=== PATIENT | male | born 1990 | race Caucasian/White ===

== ENCOUNTER 2018-12-31 18:28 | Emergency (ER) | payer BC, SELFPAY ==
[2018-12-31 18:37] VITALS: BP 173/93; PULSE 63; RESP 12; TEMP 36.6; O2SAT 95
--- NOTE | 2018-12-31 18:50 | ED.GENADUL_ITS ---
Discharge Plan Disposition Patient Disposition: HOME Condition: Good Discharge Details Chief Complaint: Laceration Clinical Impression: Visit for wound check Primary Care Provider: Yolie Pack ED Provider: Den Oneal Home Meds and New Rx's Prescriptions: No Action naproxen sodium [Aleve] 220 MG tablet 440 mg PO RF: 0 Discharge Instructions Instructions: Cellulitis (ED) Additional Instructions: To the information for what a skin infection looks like. If you notice any redness, drainage, discharge or fever, chills, swelling or pain please return immediately for reassessment. If you notice any worsening of your symptoms, or any new symptoms such as vomiting, diarrhea, fever, chills, shortness of breath, chest pain, numbness, weakness, or fainting , please return immediately to the emergency department for reevaluation. Please follow up with your primary care provider as soon as possible for reassessment and reevaluation. As always, it was a pleasure participating in your medical care today. Referrals: Yolie Pack [Primary Care Provider] - Medical Decision Making This is a pleasant 28-year-old male with no past medical history who presents because he stepped on a lea nail. He want to get his tetanus updated. Physical exam demonstrates no evidence of laceration but a very small minimal puncture wound on the bottom of his left lateral foot. An 11 blade was used to cut a small amount of callus away, and the resting material was removed. The area was then scrubbed vigorously with a chlorhexidine scrub her. Patient tolerated this well. Tetanus has been updated. We discussed red flags which to return including signs of infection the patient understands. I have extensively reviewed the treatment plan and discharge instructions with the patient. I have addressed all patient concerns at this time. The patient was made aware of what symptoms to monitor for that would warrant a return to the emergency department. Discussed the plan with the patient, they demonstrate verbal understanding and agreement with our assessment and plan at this time. HPI General Date/Time Provider Initiated Documentation: 12/31/18 18:35 . HPI Narrative: This is a 28-year-old male with no significant past medical history who presents today after he stepped onto a lea screw with his left foot. He did have the pole of the tip of the screw out. He does not know when his last tetanus was and so he came in today to get his tetanus updated. The patient has no other complaints. He denies any numbness tingling weakness. He denies any redness or chills. No other complaints. This occurred roughly 1-2 hours prior to arrival. Related Data Home Medications Medication Instructions Recorded Confirmed naproxen sodium [Aleve] 440 mg PO 10/30/17 Allergies Allergy/AdvReac Type Severity Reaction Status Date / Time No Known Allergies Allergy Unverified 12/31/18 18:40 General Stated Complaint: Laceration PORSCHE: 4 Review of Systems Review of Systems All systems reviewed & are unremarkable except as noted in HPI and below PFSH Social History Smoking/Tobacco Use Status: Never Drug use: Never Do you feel safe at home: Yes Do you feel safe in your relationship?: Yes Exam Narrative Exam Narrative: 1.Const: Well-nourished, Well-developed, appearing stated age 2.Eyes: PERRL, no conjunctival injection, and symmetrical lids. 3.ENT: Atraumatic external nose and ears. Moist MM. Neck: Symmetric, trachea midline, No thyromegaly. 4.CVS: +S1/S2, No murmurs or gallops. Peripheral pulses 2+ and equal in all extremities. Brisk capillary refill in all extremities. 5.RESP: Unlabored respiratory effort. Clear to auscultation bilaterally. No wheezes rales or rhonchi 6.GI: Soft, Nontender/Nondistended, No hepatosplenomegaly. No guarding or rebound. 7.MSK: Normocephalic/Atraumatic, Extremities w/o deformity or ttp No cyanosis or clubbing, Normal movement of all extremities 8.Skin: Warm, Dry. No rashes or lesions. Left foot demonstrates a small minimal puncture wound with a small amount of crusty material around it. No redness, discharge, or signs of infection. 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 Sensation grossly intact, no focal neurologic deficits. 10.Psych: (AAO) x3. Appropriate mood and affect Course Vital Signs Temperature 36.6 C 12/31/18 18:37 Pulse 63 12/31/18 18:37 Respiratory Rate 12 12/31/18 18:37 Blood Pressure 173/93 H 12/31/18 18:37 Pulse Oximetry 95 12/31/18 18:37 Temperature 36.6 C 12/31/18 18:37 Temperature Source Temporal Artery Scan 12/31/18 18:37 Pulse 63 12/31/18 18:37 Respiratory Rate 12 12/31/18 18:37 Respiratory Effort Non-Labored 12/31/18 18:39 Blood Pressure 173/93 H 12/31/18 18:37 Blood Pressure Position Sitting 12/31/18 18:37 Pulse Oximetry 95 12/31/18 18:37 Oxygen Delivery Method Room Air 12/31/18 18:37 Oxygen Flow Rate 0 12/31/18 18:37 Pain Level 5 12/31/18 18:37
== END 2018-12-31 19:00 | disposition home or self-care (01) ==
PROVIDERS: Emergency Provider Student in an Organized Health Care Education/Training Program; PCP Nurse Practitioner
DX: S91.332A Puncture wound without foreign body, left foot, initial encounter (principal); W45.8XXA Other foreign body or object entering through skin, initial encounter
CPT/HCPCS: 90471; 99284; 99282

== ENCOUNTER 2019-11-06 13:54 | Emergency (ER) | payer BC, SELFPAY ==
[2019-11-06 13:58] VITALS: BP 143/83; PULSE 83; RESP 18; TEMP 36.5; O2SAT 98
--- NOTE | 2019-11-06 15:20 | ED.GENADUL_ITS ---
Discharge Plan Disposition Patient Disposition: HOME Discharge Details Chief Complaint: RespSymp Clinical Impression: Pneumonia Primary Care Provider: Alvina Pope ED Provider: Supa Enamorado Home Meds and New Rx's Prescriptions: New doxycycline hyclate 100 mg tablet 100 mg PO BID Qty: 13 RF: 0 Discharge Instructions Instructions: Pneumonia (ED) Additional Instructions: Please drink plenty of fluids to stay hydrated. Allow for plenty of rest. Please contact your primary care physician to arrange follow-up. Return to the ER for any worsening or new concerning symptoms. Referrals: Alvina Pope [Primary Care Provider] - Discharge Data Discharge Date/Time-TO BE ENTERED AT DEPARTURE: 11/06/19 15:39 Medical Decision Making 29-year-old male here with productive cough for the past 2 to 3 weeks, saturating well in no respiratory distress but does have rales on left lung. Chest x-ray was reviewed and interpreted by me: negative. Suspect bronchitis and early pneumonia. Plan to treat with doxycycline. Patient was encouraged to follow-up with his primary care physician and to return should have any worsening or new concerning symptoms. Patient verbalized understanding of discharge instructions and was appreciative of care. HPI General Mode of arrival: ambulatory . Date/Time Provider Initiated Documentation: 11/06/19 15:14 . Limitations to Documentation: no limitations . Information obtained by: patient . HPI Narrative: 29-year-old male otherwise healthy presents with cough. Patient notes cough for the past 2 to 3 weeks. Cough is productive yellow sputum. Positive sick contacts including all his family members had recent respiratory illness that they have cleared. He has had fever early in course of illness. Related Data Home Medications Medication Instructions Recorded Confirmed doxycycline hyclate 100 mg PO BID #13 tab 11/06/19 Previous Rx's Medication Instructions Recorded doxycycline hyclate 100 mg PO BID #13 tab 11/06/19 Allergies Allergy/AdvReac Type Severity Reaction Status Date / Time No Known Allergies Allergy Unverified 12/31/18 18:40 General Stated Complaint: RespSymp PORSCHE: 4 Review of Systems All systems reviewed & are unremarkable except as noted in HPI and below Constitutional Constitutional: Reports as per HPI Respiratory Respiratory: Reports cough PFSH Social History Smoking/Tobacco Use Status: Never Drug use: Never Substance use type: does not use Do you feel safe at home: Yes Do you feel safe in your relationship?: Yes Exam Const General: cooperative and no acute distress HENMT Mouth: moist mucous membranes Eyes Conjunctivae: normal conjunctivae Neck Neck: trachea midline and supple Resp Auscultation: clear to auscultation bilaterally, rales on the left, no rhonchi and no wheezes Cardio Jugular venous pressure: no JVD Rate: regular rate and not tachycardic Rhythm: regular rhythm Heart Sounds: no murmurs GI Palpation: soft, not firm, no guarding, no masses, not rigid and nontender Skin General skin exam: no rashes or lesions noted Neuro General: alert, awake and tone normal Extrem General: no edema Psych Appearance: grossly normal Mental Status: mental status grossly normal Course Vital Signs Vital signs: Vital Signs Temperature 36.5 C 11/06/19 13:58 Pulse 83 11/06/19 13:58 Respiratory Rate 18 11/06/19 13:58 Blood Pressure 143/83 H 11/06/19 13:58 Pulse Oximetry 98 11/06/19 13:58 Temperature 36.5 C 11/06/19 13:58 Temperature Source Skin 11/06/19 13:58 Pulse 83 11/06/19 13:58 Respiratory Rate 18 11/06/19 13:58 Respiratory Effort 11/06/19 15:02 Blood Pressure 143/83 H 11/06/19 13:58 Pulse Oximetry 98 11/06/19 13:58 Oxygen Delivery Method Room Air 11/06/19 13:58 Oxygen Flow Rate 0 11/06/19 13:58
[2019-11-06] MEDS: Doxycycline Hyclate 100 MG CAP PO (15:35)
--- NOTE | 2019-11-06 15:37 | DI.RAD_ITS ---
EXAM: XR CHEST 2V PA LATERAL CLINICAL HISTORY: cough. TECHNIQUE: 2D digital imaging was performed. COMPARISON: No exams were available for comparison FINDINGS: LUNGS: Clear. No pleural abnormality seen. HEART: Normal. MEDIASTINUM: Normal. OTHER FINDINGS:Normal. BONE:Normal. IMPRESSION: No acute pulmonary findings.
== END 2019-11-06 15:39 | disposition home or self-care (01) ==
PROVIDERS: Emergency Provider Student in an Organized Health Care Education/Training Program; PCP Family Medicine
DX: J18.9 Pneumonia, unspecified organism (principal)
CPT/HCPCS: 99283; 71046

== ENCOUNTER 2020-10-01 19:12 | Emergency (ER) | payer BC, SELFPAY ==
[2020-10-01 19:15] VITALS: BP 160/81; PULSE 77; RESP 20; TEMP 36.5; O2SAT 98
--- NOTE | 2020-10-01 19:21 | W.ED.GENAD ---
Discharge Plan Disposition Patient Disposition: HOME Condition: Good Discharge Details Clinical Impression: Scrotal swelling, Open wound Primary Care Provider: Alvina Pope ED Provider: Yolanda Alvarez Home Meds and New Rx's Prescriptions: Continued sertraline [Zoloft] 25 mg tablet 25 mg PO DAILY RF: 0 Discharge Instructions Instructions: Scrotal Pain (ED), Vasectomy (DC) Additional Instructions: Please rest as much as possible. Please elevate your scrotum as discussed. Please continue to ice. You may use 1000 mg of Tylenol 4 times a day and/or 600 mg of ibuprofen 4 times a day. Please keep dressing over the wound to keep this from rubbing. I would like to contact Dr. Estrada tomorrow to discuss your postoperative pain further. If you develop fever/chills, increased pain, redness, drainage or other new/worsening symptoms please seek care urgently once again. Referrals: Abrahan Estrada MD [ [facility] STAFF PHYSICIAN] - Discharge Data Discharge Date/Time-TO BE ENTERED AT DEPARTURE: 10/01/20 20:44 Medical Decision Making Patient is a pleasant 30 year old male presenting today with c/c of left sided scrotal pain. He had a vasectomy 6 days ago. Since then, he has had pain in the left side of the scrotum that has continued to increase with time. He denies any trauma since. No fevers/chills. No difficulty with urinating or pain with urination. States that he has some mild tenderness that radiates into his abdomen bialteraly. 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 He noted, 2 days after his surgery, that there was an opening at the area of his incision. This has been rubbing against his left thigh. He has tried to cover this but had difficulty wiht bandage staying. On exam, patient has ecchymosis and swelling to the left scrotum. No erythema or warmth. His history is not consistent with torsion. I do not see evidence of infection. HIs inicison is open 1cm x 5mm. No drainage from this. The medial left thigh appears chaffed. I was unable to reach Dr. Estrada. He and I discussed care. I advised he slow down his activities. Encouraged elevation of his scrotum. I do not see evidence of infection, do not feel that antibiotics are warranted at this time. Offfered pain medications but patient would like to continue with tylenol and/or Ibuprofen. Dosing was discussed. Return precautions were given. Nursing staff applied dressing to prevent further chaffing. All of his questions and concerns were addressed, he is in agreement with this plan. HPI General Mode of arrival: ambulatory. Date/Time Provider Initiated Documentation: 10/01/20 19:21. Limitations to Documentation: no limitations. Information obtained by: patient, RN notes reviewed and old records reviewed. History of Present Illness 30 year old M presents to the emergency department with the chief complaint of left scrotal pain, described as moderate, with intensity rated at 7. Quality is described as aching, and is localized to the genitals. Patient reports no radiation. Patient started experiencing this day(s) (6) and it has been constant. Immobilization improves symptom(s), Movement worsens symptoms . Patient notes no other symptoms.; denies fever/chills. Patient did receive the following treatments prior to arrival, NSAID and other (tylenol) Related Data Home Medications Medication Instructions Recorded Confirmed sertraline 25 mg tablet 25 mg PO DAILY 08/13/20 09/25/20 Allergies Allergy/AdvReac Type Severity Reaction Status Date / Time No Known Allergies Allergy Unverified 08/13/20 15:01 General Stated Complaint: Male Reproductive Problem PORSCHE: 4 Review of Systems Constitutional Constitutional: Reports as per HPI, Denies chills, Denies fatigue, Denies fever(s) and Denies headache(s) ENT Ears, Nose, Mouth, and Throat: Denies headache(s) Cardiovascular Cardiovascular: Reports as per HPI, Denies chest pain and Denies dyspnea Respiratory Respiratory: Reports as per HPI, Denies cough and Denies dyspnea Gastrointestinal Gastrointestinal: Reports as per HPI Genitourinary Genitourinary: Denies system reviewed and no additional complaints, except as documented (patient denies any change in urinary habits) Musculoskeletal Musculoskeletal: Reports as per HPI and Denies back pain Integumentary/Breasts Skin/Breast: Reports as per HPI and Denies rash Neurologic Neurologic: Reports as per HPI and Denies headache(s) Endocrine Endocrine: Denies fatigue PFS Social History Smoking/Tobacco Use Status: Never Smoking risk assessment performed?: Yes Drug use: Never Substance use type: does not use Do you feel safe at home: Yes Do you feel safe in your relationship?: Yes Exam Const General: cooperative, healthy appearing, uncomfortable, no acute distress and well developed Nutritional Appearance: well nourished and overweight Orientation: alert and awake [facility] Head: normal to inspection Mouth: moist mucous membranes Resp Effort & Inspection: normal respiratory effort, able to speak in complete sentences and no respiratory distress Auscultation: clear to auscultation bilaterally, no rales, no rhonchi and no wheezes Cardio Rate: regular rate Rhythm: regular rhythm Heart Sounds: S1 normal and S2 normal GI Inspection: normal to inspection Palpation: soft, no hepatosplenomegaly, not rigid and nontender Percussion: normal to percussion Auscultation: normal bowel sounds Penis: normal penis Meatus: meatus normal Scrotum: ecchymosis on the left, not erythematous, no inguinal hernias, no masses and scrotal swelling on the left Testes: normal Back/Spine/Pelvis Back: no CVA tenderness Skin General skin exam: ecchymosis Wounds: wounds noted (incision has opened left testicle) Neuro General: patient alert and patient awake Cognition: normal cognition Speech: speech normal Gait: normal gait Psych Appearance: grossly normal and well kempt Mental Status: mental status grossly normal Speech and Movement: speech and movement normal Course Vital Signs Vital signs: Vital Signs Temperature 36.5 C 10/01/20 19:15 Pulse 77 10/01/20 19:15 Respiratory Rate 20 10/01/20 19:15 Blood Pressure 160/81 H 10/01/20 19:15 Pulse Oximetry 98 10/01/20 19:15 Temperature 36.5 C 10/01/20 19:15 Temperature Source Temporal Artery Scan 10/01/20 19:15 Pulse 77 10/01/20 19:15 Respiratory Rate 20 10/01/20 19:15 Respiratory Effort Non-Labored 10/01/20 19:19 Blood Pressure 160/81 H 10/01/20 19:15 Pulse Oximetry 98 10/01/20 19:15 Oxygen Delivery Method Room Air 10/01/20 19:15 Oxygen Flow Rate 0 10/01/20 19:15 Pain Level 7 10/01/20 19:15
[2020-10-01 20:39] VITALS: BP 160/81; PULSE 77; RESP 20; TEMP 36.5; O2SAT 98
== END 2020-10-01 20:44 | disposition home or self-care (01) ==
PROVIDERS: Emergency Provider Physician Assistant; PCP Family Medicine
DX: T81.32XA Disruption of internal operation (surgical) wound, not elsewhere classified, initial encounter (principal); N50.82 Scrotal pain; G89.18 Other acute postprocedural pain; Z98.52 Vasectomy status
CPT/HCPCS: 99282; 99283

== ENCOUNTER 2020-10-29 14:40 | Emergency (ER) | payer BC, SELFPAY ==
[2020-10-29 14:43] VITALS: BP 151/90; PULSE 73; RESP 20; TEMP 36.5; O2SAT 98
--- NOTE | 2020-10-29 15:00 | RT.EKG_ITS ---
APPROVED REPORT Exam: Resting ECG Patient Location: E HR:72 bpm ECG Measurements Heart Rate 72 AXIS AK 172 P -25 QRSd 83 QRS 60 QT 370 T 19 QTc 406 Conclusion Sinus rhythm...normal P axis, V-rate 60- 99 Physician: Q wave and inverted t wave in lead 3, no stemi
[2020-10-29] MEDS: Ketorolac 60 MG/2 ML VIAL IM (15:25)
--- NOTE | 2020-10-29 15:35 | ED.GENADUL_ITS ---
Discharge Plan Disposition Patient Disposition: HOME Condition: Stable Discharge Details Clinical Impression: Radicular pain in right arm Primary Care Provider: Alvina Pope ED Provider: Zeke Edwards Home Meds and New Rx's Prescriptions: Continued sertraline [Zoloft] 25 mg tablet 25 mg PO DAILY RF: 0 ibuprofen [IBU-200] 200 mg Tablet 600 mg PO Q6H PRNRF: 0 Discharge Instructions Instructions: Cervical Radiculopathy (ED) Additional Instructions: Rash, elevate, cool and/or warm compresses every 2 hours for 20 minutes. [id number] anti-inflammatory medication yesterday. Please watch for new or worsening symptoms and return to the ER for any concerns. Gentle stretching as tolerated. Please follow-up with your primary care provider tomorrow as already scheduled. Watch for new or worsening symptoms and return to the ER for any concerns. As we discussed, if your symptoms are not improving with conservative care and referral for potential MRI and/or nerve conduction study test may be indicated. Discharge Data Discharge Date/Time-TO BE ENTERED AT DEPARTURE: 10/29/20 16:05 Medical Decision Making 30-year-old male, no significant past medical history, presenting for pain that travels down from his shoulder into his right arm but not below his elbow. Associated with paresthesias throughout his entire right arm. Denies any numbne ss or weakness. Similar presentation to his left arm approximately 7-10 days ago, resolved after 24 hours on its own. Denies any obvious trauma however did lift 100 pound propane tank. He denies any midline neck discomfort, recent fevers, history of IV drug use, abdominal pain, chest pain, shortness of breath, cough. Clinically he appears well, nontoxic. Neuro, vascular, tendon intact. Patient has full range of motion of the right shoulder but his discomfort does increase with movement. He has discomfort over the anterior aspect of his right shoulder as well as his right trapezius. Clinically this certainly appears to be musculoskeletal in nature. Given the lack of trauma, no midline point tenderness, no history of IV drug use, I do not believe that emergent imaging is likely indicated. We discussed more conservative therapy of cool and/or warm compresses, consistent anti-inflammatory use, and careful observation. We will obtain a screening EKG at this time however ACS is extremely low on the differential. Patient has proper follow-up tomorrow with his primary care provider. We discussed that if symptoms were to persist that referral to neurology or orthopedics could be indicated for assessment, advanced imaging, nerve conduction studies, etc. Patient is comfortable with this plan and has no additional questions or concerns. He was given 60 IM Toradol. EKG obtained, please see official report by Dr. Oneal. Sinus rhythm, normal P axis, ventricular rate of 72. No STEMI. Q waves and inverted T waves in leads III. Medical Records Medical records reviewed: Yes I reviewed the patient's medical records. HPI General Mode of arrival: ambulatory . Date/Time Provider Initiated Documentation: 10/29/20 14:40 . Limitations to Documentation: no limitations . Information obtained by: patient . 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 He states roughly 7-10 days ago he developed tingling and shooting pain in his left arm, it lasted no more than 1 day and it resolved completely. Yesterday he lifted a 100 pound propane cylinder, denies any obvious injury. Later that evening he developed shooting discomfort intermittently down the right arm associated with tingling. He reports that the pain is mild but worse with movement. The pain is primarily in his right trapezius and anterior shoulder. He denies any fever, neck pain, chest pain, shortness of breath, radiation elsewhere of his discomfort, weakness or numbness. He took a single dose of Motrin yesterday for his discomfort. He is actually scheduled to be seen by his primary care provider tomorrow but came to the ER today to be evaluated in a more timely fashion. Prior to the symptoms 7-10 days ago, he has never had anything like this before. He denies any back pain or pain in his legs. He denies smoking. He reports rather infrequent alcohol use, no drug use. He tells me that his father had a heart attack in his 50s and he just wants to be sure that this is not his heart. Related Data Home Medications Medication Instructions Recorded Confirmed sertraline 25 mg tablet 25 mg PO DAILY 08/13/20 10/29/20 ibuprofen [IBU-200] 600 mg PO Q6H PRN 10/29/20 10/29/20 Allergies Allergy/AdvReac Type Severity Reaction Status Date / Time No Known Allergies Allergy Unverified 10/29/20 14:48 General Stated Complaint: Orthopedic PORSCHE: 3 Review of Systems Constitutional Constitutional: Denies fever(s), Denies headache(s) and Denies weakness ENT Ears, Nose, Mouth, and Throat: Denies headache(s) and Reports neck pain Cardiovascular Cardiovascular: Denies chest pain and Denies dyspnea Respiratory Respiratory: Denies cough and Denies dyspnea Gastrointestinal Gastrointestinal: Denies abdominal pain, Denies nausea and Denies vomiting Musculoskeletal Musculoskeletal: Denies back pain, Denies arthralgias, Reports neck pain, Denies numbness and Reports tingling Integumentary/Breasts Skin/Breast: Denies erythema Neurologic Neurologic: Denies headache(s), Denies numbness, Reports tingling and Denies weakness [facility] Social History Smoking/Tobacco Use Status: Never Smoking risk assessment performed?: Yes Alcohol Intake: current Alcohol Intake frequency: holidays/special occasions only Drug use: Never Substance use type: does not use Current gender identity: male Do you feel safe at home: Yes Do you feel safe in your relationship?: Yes Exam Const General: cooperative, healthy appearing, comfortable and no acute distress Orientation: alert and awake HENMT Head: normal to inspection, normocephalic and atraumatic Mouth: moist mucous membranes Eyes General: appearance normal, both eyes and all related structures Conjunctivae: conjunctivae normal Sclera: sclerae normal Neck Neck: normal visual inspection, full ROM, no lymphadenopathy, no meningeal signs, trachea midline, supple and tender (Right trapezius, no midline point tenderness) Chest Chest: normal palpation of entire chest wall Resp Effort & Inspection: normal respiratory effort and able to speak in complete sentences Auscultation: clear to auscultation bilaterally Cardio Rate: regular rate Rhythm: regular rhythm GI Palpation: soft and nontender Back/Spine/Pelvis Back: no CVA tenderness and No back tenderness Skin General skin exam: no rashes or lesions noted Neuro General: patient alert, patient awake, moves all extremities and no focal motor deficits Cognition: normal cognition Speech: speech normal Gait: normal gait Motor: muscle tone normal throughout, strength 5/5 throughout, no movement abnormalities noted and no fasciculations Sensory Exam: no sensory deficits noted Extrem General: normal to inspection, full ROM and capillary refill normal Right upper extremity: normal to inspection, full ROM, normal capillary refill, shoulder/upper arm Details: normal to inspection, tenderness, axillary nerve sensory function normal and normal ROM; no swelling, no ecchymosis and no crepi tus, elbow/forearm Details: normal to inspection, normal ROM and distal pulses intact; no tenderness and no swelling, wrist Details: normal to inspection, normal ROM, normal vascular exam and radial pulse present; no tenderness and no swelling and hand Details: normal to inspection, normal capillary refill, neuromotor exam normal, neurosensory exam normal, tendon exam normal, vascular exam Details: radial pulse present and normal capillary refill and normal ROM of fingers; no tenderness; no cyanosis, no edema and joint enlargement noted Left upper extremity: normal to inspection, full ROM, normal capillary refill and shoulder/upper arm Details: inspection abnormal, axillary nerve sensory function normal and normal ROM; no tenderness; no cyanosis, no edema and joint enlargement noted Shoulder/upper arm images: 1. Mild tenderness to moderate palpation. Skin is intact. No erythema, warmth, ecchymosis. Neuro, vascular, tendon intact 2. Mild tenderness to moderate palpation. Skin is intact. No erythema, warmth, ecchymosis. Neuro, vascular, tendon intact. Psych Appearance: grossly normal Mental Status: mental status grossly normal Course Vital Signs Vital signs: Vital Signs Temperature 36.5 C 10/29/20 14:43 Pulse 73 10/29/20 14:43 Respiratory Rate 20 10/29/20 14:43 Blood Pressure 151/90 H 10/29/20 14:43 Pulse Oximetry 98 10/29/20 14:43 Temperature 36.5 C 10/29/20 14:43 Temperature Source Temporal Artery Scan 10/29/20 14:43 Pulse 73 10/29/20 14:43 Respiratory Rate 20 10/29/20 14:43 Respiratory Effort Non-Labored 10/29/20 14:47 Blood Pressure 151/90 H 10/29/20 14:43 Blood Pressure Position Sitting 10/29/20 14:43 Pulse Oximetry 98 10/29/20 14:43 Oxygen Delivery Method Room Air 10/29/20 14:43 Oxygen Flow Rate 0 10/29/20 14:43 Pain Level 6 10/29/20 15:25
[2020-10-29 15:53] VITALS: BP 135/79; PULSE 69; RESP 21; TEMP 36.6; O2SAT 97
== END 2020-10-29 16:05 | disposition home or self-care (01) ==
PROVIDERS: Emergency Provider Physician Assistant; PCP Family Medicine
DX: M79.601 Pain in right arm (principal); R20.2 Paresthesia of skin; M25.511 Pain in right shoulder; M54.10 Radiculopathy, site unspecified
CPT/HCPCS: 93005; 96372; 99284; 93010; J1885

== ENCOUNTER 2021-08-19 14:45 | Emergency (ER) | payer BC, SELFPAY ==
[2021-08-19] VITALS (13 sets, daily range): BP systolic 131–135; BP diastolic 73–76; PULSE 83–88; RESP 20; TEMP 36.4–36.8; O2SAT 95–98
--- NOTE | 2021-08-19 15:06 | W.ED.GENAD ---
Discharge Plan Disposition Patient Disposition: HOME Condition: Stable Discharge Details Clinical Impression: COVID-19 Primary Care Provider: Alvina Pope ED Provider: Sarai Garcia Home Meds and New Rx's Prescriptions: New albuterol sulfate 90 mcg/actuation aerosol powdr breath activated 2 inh IH Q6H PRN (Reason: shortness of breath or wheezing) Qty: 1 RF: 0 prednisone 20 mg tablet 40 mg PO DAILY 2 Days Qty: 4 RF: 0 benzonatate 100 mg capsule 100 mg PO TID PRN (Reason: cough) Qty: 10 RF: 0 amoxicillin-pot clavulanate [Augmentin] 875-125 mg tablet 1 tab PO BID 7 Days Qty: 14 RF: 0 Discharge Instructions Instructions: COVID-19 (Coronavirus Disease 2019) (ED) Additional Instructions: Your Covid test today is positive. Prescriptions for an inhaler, steroids and cough medication have been sent electronically to your pharmacy. Use the inhaler as needed and directed for cough or shortness of breath. Take the cough medication as needed and directed. Start the steroid prescription tomorrow and take once daily for the next 2 days. You have also been sent home with 2 doses of Robitussin with codeine to take every 6 hours as needed and directed for coughing. A prescription for antibiotics has also been sent electronically to your pharmacy. You do not need to start the antibiotics unless the cough worsens with yellow or green sputum production. Report to the [facility] building [address] at 10 AM tomorrow morning for your monoclonal antibody infusion for treatment of your COVID-19 virus. This infusion can help prevent hospitalization, disability and from COVID-19. Follow-up with your primary care doctor in 1 week. Call your children's watch train assembler for recommendations as they are considered close contacts to COVID-19. Return to the emergency department with any worsening or new concerning symptoms such as persistent vomiting or diarrhea or shortness of breath. You can use the pulse oximeter that you were sent home with to monitor your oxygen levels. If your oxygen level is persistently below 90% and you feel short of breath, return immediately to the emergency department. Discharge Data Discharge Physician: Sarai Garcia Medical Decision Making 31-year-old male presents with cough, nausea, fatigue and diarrhea for the past 2 days. Vitals within normal limits. Oxygen saturation 97 to 98% on room air. He has coughing noted in the room but it does not appear productive and there is no wheezing on exam. No rhonchi or crackles. Normal ENT exam. Suspect most likely URI with cough. Also consider developing bronchitis. A rapid Covid swab obtained. Will give a breathing treatment, dose of steroids, Tessalon Perles and reassess. Covid swab positive. Patient reassessed and he denies any relief with albuterol neb. He was given a dose of Toradol and Robitussin with codeine and had significant improvement in his cough and chest pain with coughing. A chest x-ray noted a questionable left basilar opacity which may represent an infiltrate. Patient's oxygen saturation remained within normal limits. Discussed with Brenda Olmos and patient can be seen tomorrow in the [facility] [address] for a monoclonal antibody infusion at 10 AM. Patient is agreeable with this plan. Prescription for steroids to help with pain and coughing, cough medication and albuterol inhaler sent electronically to his pharmacy. As there is a questionable infiltrate, a new antibiotic prescription was sent electronically to take if his symptoms do not improve or worsen or he has sputum production. He was also given a pulse oximeter to go. Advised to follow up with the primary care doctor for re-evaluation. Usual and customary return precautions given prior to discharge. Medical Records Medical records reviewed: Yes I reviewed the patient's medical records. Imaging Data Radiologic Study: Radiologist's impression: XR Chest Exam date and time: 08/19/2021 4:33 PM Age: 31 years old Clinical indication: Cough and shortness of breath TECHNIQUE: Imaging protocol: XR of the chest. Views: 1 view. COMPARISON: CR XR CHEST 2V PA LATERAL 11/06/2019 3:30 PM FINDINGS: Lungs: Hypoventilatory study. Questionable nodular opacity in the right upper lung zone. Faint left basilar opacity. Pleural spaces: Unremarkable. No pleural effusion. No pneumothorax. Heart/Mediastinum: Unremarkable. No cardiomegaly. Bones/joints: Unremarkable. IMPRESSION: Faint left basilar opacity may represent an infiltrate. Ill-defined right upper lung zone opacity as well. Recommend follow-up PA and lateral. Lab Data Lab results reviewed: Yes I reviewed the patient's lab results. Labs: Laboratory Tests Range/Units 08/19/21 15:00 COVID-19 Source Nasal/Nares SARS-CoV-2 (PCR) (Negative) POSITIVE A* HPI General Mode of arrival: ambulatory. Date/Time Provider Initiated Documentation: 08/19/21 14:59. Limitations to Documentation: no limitations. Information obtained by: patient. HPI Narrative: Patient is a 31-year-old male who presents with cough, fatigue and diarrhea for the past few days. 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 Last test yesterday. He states he first started with sinus symptoms a few weeks ago with sinus pressure, congestion and green nasal discharge. He states his sinus symptoms are now resolved and he has occasional clear nasal discharge. He states he received his Covid booster 2 days ago and since that night has had dry cough and a few episodes of watery brown diarrhea. He states he has had decreased appetite but denies any loss of sense of smell or taste. He admits to occasional burning in his chest and shortness of breath that occurs only with coughing. He denies any fever, vomiting. He states he took DayQuil today without relief. Related Data Home Medications Medication Instructions Recorded Confirmed albuterol sulfate 2 inh IH Q6H PRN #1 each 08/19/21 amoxicillin-pot clavulanate 1 tab PO BID 7 Days #14 tab 08/19/21 [Augmentin] benzonatate 100 mg PO TID PRN #10 cap 08/19/21 prednisone 40 mg PO DAILY 2 Days #4 tab 08/19/21 Previous Rx's Medication Instructions Recorded albuterol sulfate 2 inh IH Q6H PRN #1 each 08/19/21 amoxicillin-pot clavulanate 1 tab PO BID 7 Days #14 tab 08/19/21 [Augmentin] benzonatate 100 mg PO TID PRN #10 cap 08/19/21 prednisone 40 mg PO DAILY 2 Days #4 tab 08/19/21 Allergies Allergy/AdvReac Type Severity Reaction Status Date / Time No Known Allergies Allergy Unverified 08/19/21 14:57 General Stated Complaint: RespSymp PORSCHE: 2 Review of Systems All systems reviewed & are unremarkable except as noted in HPI and below Constitutional Constitutional: Reports as per HPI, Denies chills and Denies fever(s) Eyes Eyes: Denies blurry vision ENT Ears, Nose, Mouth, and Throat: Denies dizziness, Denies sore throat and Denies throat swelling Cardiovascular Cardiovascular: Reports chest pain (burning, only with coughing) and Reports dyspnea (only with some coughing episodes) Respiratory Respiratory: Reports cough and Reports dyspnea (only with some coughing episodes) Gastrointestinal Gastrointestinal: Denies abdominal pain, Denies diarrhea and Denies vomiting Genitourinary Genitourinary: Denies hematuria and Denies dysuria Musculoskeletal Musculoskeletal: Denies back pain and Denies numbness Integumentary/Breasts Skin/Breast: Denies lesions and Denies rash Neurologic Neurologic: Denies dizziness, Denies localized weakness and Denies numbness Allergic/Immunologic Allergic/Immunologic: Denies throat swelling PFS Active Problem List (Updated 08/19/21 @ 16:49 by Sarai Garcia DO) COVID-19 (Acute) Bilateral carpal tunnel syndrome (Acute) Pneumonia (Acute) Medical History (Updated 08/19/21 @ 16:49 by Sarai Garcia DO) Anxiety with depression Paresthesia of both hands Preventative health care Scheuermanns disease Subcutaneous mass Tinea pedis VSD (ventricular septal defect) Social History Smoking/Tobacco Use Status: Former Tobacco Use Smoking risk assessment performed?: Yes Alcohol Intake: current Alcohol Intake frequency: holidays/special occasions only Drug use: Never Substance use type: does not use Current gender identity: male Do you feel safe at home: Yes Do you feel safe in your relationship?: Yes Exam Const General: cooperative and no acute distress HENMT Head: normal to inspection Ears: hearing grossly normal bilaterally, external ears normal and TM's normal bilaterally General nose exam: external nose normal Face and sinus: normal facial exam and no sinus tenderness Mouth: oral mucosae normal Throat: posterior oropharynx normal Eyes General: appearance normal, both eyes and all related structures EOM: EOM intact bilaterally Neck Neck: normal visual inspection and No submandibular swelling Lymphatic: no lymphadenopathy noted Chest Chest: normal inspection of the chest and no tenderness Resp Effort & Inspection: normal respiratory effort and able to speak in complete sentences Auscultation: clear to auscultation bilaterally Cardio Rate: regular rate Rhythm: regular rhythm Skin General skin exam: no rashes or lesions noted Neuro General: patient alert, patient awake and patient oriented x3 Cognition: normal cognition Speech: speech normal Motor: muscle tone normal throughout Sensory Exam: no sensory deficits noted Extrem General: normal to inspection, full ROM, capillary refill normal, no calf tenderness bilaterally and no edema Psych Appearance: grossly normal Mental Status: mental status grossly normal Speech and Movement: speech and movement normal Affect: normal affect Course Vital Signs Vital signs: Vital Signs Temperature 97.5 F L 08/19/21 14:52 Pulse 88 08/19/21 14:52 Respiratory Rate 20 08/19/21 14:52 Blood Pressure 131/73 08/19/21 14:52 Pulse Oximetry 98 08/19/21 14:52 Temperature 97.5 F L 08/19/21 14:52 Temperature Source Skin 08/19/21 14:52 Pulse 88 08/19/21 14:52 Respiratory Rate 20 08/19/21 14:52 Respiratory Effort 08/19/21 15:02 Blood Pressure 131/73 08/19/21 14:52 Blood Pressure Position Sitting 08/19/21 14:52 Pulse Oximetry 98 08/19/21 14:52 Oxygen Delivery Method Room Air 08/19/21 14:52 Oxygen Flow Rate 0 08/19/21 14:52 Pain Level 7 08/19/21 14:52
[2021-08-19 15:30] LABS: Source Nasal/Nares
[2021-08-19] MEDS: predniSONE 20 MG TAB 60 MG PO (15:31)
[2021-08-19] MEDS: Albuterol/Ipratropium 3 ML UPD VIAL UPD (15:31)
[2021-08-19] MEDS: Benzonatate 100 MG CAP PO (15:31)
--- NOTE | 2021-08-19 16:30 | DI.RAD_ITS ---
Exam(s) XR PORTABLE CHEST AP EXAM: XR PORTABLE CHEST AP CLINICAL HISTORY: cough, sob, r/o acute disease. TECHNIQUE: 2D digital imaging was performed. COMPARISON: CR XR CHEST 2V PA LATERAL from 11/06/2019 FINDINGS: Heart size is upper normal. The mediastinum is not widened. There infiltrates in both lower lobes. No pleural effusions. IMPRESSION: Suboptimal inspiratory effort. However, suspicion for bilateral lower lobe infiltrates. Recommend n onportable PA and lateral views when clinically possible. DATA REPOSITORY: RADIATION DOSE DELIVERED: All CT scans at this facility use at least one of these dose optimization techniques: automated exposure control; mA and/or kV adjustment per patient size (includes targeted e xams where dose is matched to clinical indication); or iterative reconstruction.
[2021-08-19 16:34] LABS: COVID-19 PCR POSITIVE (Negative)
[2021-08-19] MEDS: Ketorolac 60 MG/2 ML VIAL IM (16:50)
[2021-08-19] MEDS: guaiFENesin/CODEINE PHOSPHATE 10 ML CUP PO (16:50)
--- NOTE | 2021-08-19 17:06 | DI.VRAD_ITS ---
PROCEDURE INFORMATION: Exam: XR Chest Exam date and time: 08/19/2021 4:33 PM Age: 31 years old Clinical indication: Cough and shortness of breath TECHNIQUE: Imaging protocol: XR of the chest. Views: 1 view. COMPARISON: CR XR CHEST 2V PA LATERAL 11/06/2019 3:30 PM FINDINGS: Lungs: Hypoventilatory study. Questionable nodular opacity in the right upper lung zone. Faint left basilar opacity. Pleural spaces: Unremarkable. No pleural effusion. No pneumothorax. Heart/Mediastinum: Unremarkable. No cardiomegaly. Bones/joints: Unremarkable. IMPRESSION: Faint left basilar opacity may represent an infiltrate. Ill-defined right upper lung zone opacity as well. Recommend follow-up PA and lateral. Dictated and Authenticated by: Franck Escudero MD. Ordering:RODRIGO Moon MD
[2021-08-19] MEDS: guaiFENesin/CODEINE PHOSPHATE 10 ML CUP 20 ML PO (17:35)
== END 2021-08-19 17:48 | disposition home or self-care (01) ==
PROVIDERS: Emergency Provider Physician Assistant; PCP Family Medicine
DX: U07.1 COVID-19 (principal); R06.02 Shortness of breath; R05.9 Cough, unspecified
CPT/HCPCS: 87635; 94640; 96372; 99284; 71045; J1885; J7512; J7620

== ENCOUNTER 2021-08-20 01:49 | Outpatient (CLI) | payer BC, SELFPAY ==
[2021-08-20] MEDS: Normal Saline 500 ML 30 ML IV (13:00)
[2021-08-20 13:15] VITALS: BP 121/96; PULSE 68; RESP 16; TEMP 35.8; O2SAT 96
[2021-08-20 13:20] VITALS: BP 123/74; PULSE 62; RESP 16; TEMP 36.6; O2SAT 99
[2021-08-20 13:40] VITALS: BP 128/72; PULSE 65; RESP 16; TEMP 36.8; O2SAT 97
[2021-08-20 14:10] VITALS: BP 123/72; PULSE 64; RESP 16; TEMP 36.6; O2SAT 95
[2021-08-20 14:40] VITALS: BP 119/70; PULSE 61; RESP 16; TEMP 36.4; O2SAT 94
== END 2021-08-20 01:50 | disposition home or self-care (01) ==
LOC: INF 01:50
PROVIDERS: PCP Family Medicine; Visit Provider Family Medicine
DX: U07.1 COVID-19 (principal)
CPT/HCPCS: 96365

== ENCOUNTER 2023-10-03 18:05 | Emergency (ER) | payer BC, SELFPAY ==
[2023-10-03 18:08] VITALS: BP 171/97; PULSE 79; RESP 18; TEMP 35.9; O2SAT 96
--- NOTE | 2023-10-03 18:17 | ED.GENADUL_ITS ---
Discharge Plan Disposition Patient Disposition: Home Condition: Good Discharge Details Clinical Impression: Laceration of finger Primary Care Provider: Alvina Pope ED Provider: Reina Eagle Home Meds and New Rx's Prescriptions: No Action albuterol sulfate 90 mcg/actuation aerosol powdr breath activated 2 inh IH Q6H PRN (Reason: shortness of breath or wheezing) Qty: 1 0RF benzonatate 100 mg capsule 100 mg PO TID PRN (Reason: cough) Qty: 10 0RF Discharge Instructions Instructions: Finger Laceration (ED) Additional Instructions: Keep wound clean, dry and covered. You can shower, but do not keep hand submerged in water, like dishes or a bathtub. Pat dry. Stitches will dissolve on their own and do not need to be removed. Return if you develop worsening swelling, redness, drainage or increasing pain. These would be concerning signs for infection. Medical Decision Making Emergent evaluation of finger laceration. Laceration very superficial, doubt bony involvement, doubt ligamentous injury. No evidence of foreign body. Tetanus is within 10 years. Laceration repaired without complication. No indication for antibiotic prophylaxis. Return precautions advised. Wound care instructions provided. Medical Records Medical records reviewed: Yes I reviewed the patient's medical records. HPI General Date/Time Provider Initiated Documentation: 10/03/23 18:17 . Limitations to Documentation: no limitations . Information obtained by: patient . HPI Narrative: 33-year-old gentleman without significant past medical history presents for evaluation of left finger laceration. Occurred just prior to arrival. He was trying to open something with a knife and cut his left finger. Denies any numbness, tingling, difficulty moving his finger tetanus within 10 years. Related Data Home Medications Medication Instructions Recorded Confirmed albuterol sulfate 90 mcg/actuation 2 inh inhalation Q6H PRN shortness 08/19/21 breath activated powder inhaler of breath or wheezing #1 ea benzonatate 100 mg capsule 100 mg PO TID PRN cough #10 caps 08/19/21 Previous Rx's Medication Instructions Recorded albuterol sulfate 90 mcg/actuation 2 inh inhalation Q6H PRN shortness 08/19/21 breath activated powder inhaler of breath or wheezing #1 ea benzonatate 100 mg capsule 100 mg PO TID PRN cough #10 caps 08/19/21 Allergies Allergy/AdvReac Type Severity Reaction Status Date / Time No Known Allergies Allergy Unverified 08/19/21 14:57 General Stated Complaint: Laceration PORSCHE: 4 PFSH All Active Problems (Updated 10/03/23 @ 18:35 by Reina Eagle MD) Laceration of finger (Acute) COVID-19 (Acute) Bilateral carpal tunnel syndrome (Acute) Pneumonia (Acute) Medical History Preventative health care VSD (ventricular septal defect) Scheuermanns disease Subcutaneous mass Tinea pedis Anxiety with depression Paresthesia of both hands Social History Smoking/Tobacco Use Status: Former Tobacco Use Smoking risk assessment performed?: Yes Alcohol Intake: current Alcohol Intake frequency: holidays/special occasions only Drug use: Never Substance use type: does not use Current gender identity: male Do you feel safe at home: Yes Do you feel safe in your relationship?: Yes Exam Narrative Exam Narrative: Review of Systems: All systems reviewed & are unremarkable except as noted in HPI and below Well-developed, no acute distress NACT PERRL, normal conjunctiva RRR Unlabored respiratory effort Nondistended abdomen Left index finger with superficial laceration on the radial aspect at the PIP. Flap is very superficial, neurovascularly intact, good cap refill, normal range of motion in all distributions No rashes or lesions. no focal neurologic deficits Appropriate mood and affect Course Vital Signs Vital signs: Vital Signs Temperature 35.9 C L 10/03/23 18:08 Pulse 79 10/03/23 18:08 Respiratory Rate 18 10/03/23 18:08 Blood Pressure 171/97 H 10/03/23 18:08 Pulse Oximetry 96 10/03/23 18:08 Temperature 35.9 C L 10/03/23 18:08 Temperature Source Oral 10/03/23 18:08 Pulse 79 10/03/23 18:08 Respiratory Rate 18 10/03/23 18:08 Respiratory Effort Normal, Non-Labored 10/03/23 18:15 Blood Pressure 171/97 H 10/03/23 18:08 Pulse Oximetry 96 10/03/23 18:08 Oxygen Delivery Method Room Air 10/03/23 18:08 Oxygen Flow Rate 0 10/03/23 18:08 Procedures Laceration Laceration 1: Site: hand Side (If applicable): left (Index finger) Size (cm): 2 Description: linear, flap and clean Depth: simple, single layer Local Anesthetic: other anesthetic (Let) Skin layer closed with: other (Chromic Gut) Size (cm): 5-0 Number of sutures: 3 Technique: simple, interrupted
[2023-10-03] MEDS: Lidocaine/Epinephri/Tetracaine Topical Gel 3 ML TP (18:20)
== END 2023-10-03 18:48 | disposition home or self-care (01) ==
PROVIDERS: Emergency Provider Emergency Medicine; PCP Family Medicine
DX: S61.211A Laceration without foreign body of left index finger without damage to nail, initial encounter (principal); Z87.891 Personal history of nicotine dependence; W26.0XXA Contact with knife, initial encounter; Y93.89 Activity, other specified; Y92.018 Other place in single-family (private) house as the place of occurrence of the external cause
CPT/HCPCS: 12001; 99283

== ENCOUNTER 2024-03-28 15:52 | Emergency (ER) | payer BC, SELFPAY ==
[2024-03-28 16:10] VITALS: BP 164/99; PULSE 77; RESP 12; TEMP 35.6; O2SAT 95
--- NOTE | 2024-03-28 16:47 | ED.GENADUL_ITS ---
Discharge Plan Discharge Details Chief Complaint: PsychEval Primary Care Provider: Alvina Pope ED Provider: Delmy Ruffin Home Meds and New Rx's Prescriptions: No Action sertraline 100 mg tablet 100 mg PO DAILY risperidone [Risperdal] 0.5 mg tablet 0.5 mg PO BID HPI General Date/Time Provider Initiated Documentation: 03/28/24 16:20 . HPI Narrative: Eric is a 34-year-old male who presents to the emergency department today for evaluation of suicidal ideation. He reports that he has had worsening depressi on and anxiety over the last couple of months, says it has been steadily increasing. He admits to having a plan, says that he can either steal a gun from one of his friends trucks or drive his car into a telephone pole. He denies self-harm behaviors, drug use, hallucinations, HI. No previous inpatient hospitalizations. He does use nicotine pouches, denies other substance use. Reports he has recently been in good health, denies fever/chills, congestion, sore throat, cough, chest pain, shortness of breath, change in p.o. intake, change in bowel or bladder function, rashes. Denies significant past medical history. He does have good social support, is in the waiting room. Physical exam remarkable for tearful patient who is alert and oriented, no acute distress. Easy work of breathing, lung sounds clear bilaterally. Normal heart sounds. Moving all extremities equally. Normal gait. No obvious rashes or lesions. Patient medically cleared using smart medical clearance. No red flags concerning for medical etiology of symptoms. Awaiting crisis eval. patient has been evaluated by Fiona from [facility], awaiting inpatient placement. Related Data Home Medications Medication Instructions Recorded Confirmed risperidone 0.5 mg tablet 0.5 mg PO BID 03/28/24 03/28/24 (Risperdal) sertraline 100 mg tablet 100 mg PO DAILY 03/28/24 03/28/24 Allergies Allergy/AdvReac Type Severity Reaction Status Date / Time No Known Allergies Allergy Unverified 03/28/24 16:14 General Stated Complaint: PsychEval PORSCHE: 2 Review of Systems Narrative: See HPI Exam Const General: cooperative, healthy appearing, comfortable and anxious Nutritional Appearance: average body habitus Resp Effort & Inspection: normal respiratory effort and able to speak in complete sentences Auscultation: clear to auscultation bilaterally Cardio Rate: regular rate Rhythm: regular rhythm Skin General skin exam: no rashes or lesions noted Neuro General: gait normal, tone normal and moves all extremities Cognition: normal cognition Speech: speech normal Gait: normal gait Psych Appearance: grossly normal Mental Status: mental status grossly normal Speech and Movement: speech and movement normal Affect: sad Attitude: cooperative Thought Process: normal Thought Content: suicidality Insight: insight good Judgment: judgment good Course Vital Signs Vital signs: Vital Signs Temperature 35.6 C L 03/28/24 16:10 Pulse 77 03/28/24 16:10 Respiratory Rate 12 03/28/24 16:10 Blood Pressure 164/99 H 03/28/24 16:10 Pulse Oximetry 95 03/28/24 16:10 Temperature 35.6 C L 03/28/24 16:10 Temperature Source Temporal Artery Scan 03/28/24 16:10 Pulse 77 03/28/24 16:10 Respiratory Rate 12 03/28/24 16:10 Respiratory Effort Normal, Non-Labored 03/28/24 16:17 Blood Pressure 164/99 H 03/28/24 16:10 Blood Pressure Position Sitting 03/28/24 16:10 Pulse Oximetry 95 03/28/24 16:10 Oxygen Delivery Method Room Air 03/28/24 16:10 Oxygen Flow Rate 0 03/28/24 16:10 Pain Level 0 03/28/24 16:10 Medical Decision Making Quality:SDOH Health Related Social Needs: No Data to Display PFSH All Active Problems (Updated 11/03/23 @ 00:04 by VICENTE BOSTON) COVID-19 (Acute) Bilateral carpal tunnel syndrome (Acute) Pneumonia (Acute) Medical History Preventative health care VSD (ventricular septal defect) Scheuermanns disease Subcutaneous mass Tinea pedis Anxiety with depression Paresthesia of both hands Social History Smoking/Tobacco Use Status: Current every day Tobacco Type: smokeless tobacco Smoking risk assessment performed?: Yes Alcohol Intake: current Alcohol Intake frequency: holidays/special occasions only Drug use: Never Substance use type: does not use Housing: house Current gender identity: male Do you feel safe at home: Yes Do you feel safe in your relationship?: Yes PAWSS Have you Been Recently Intoxicated or Drunk Within the Last 30 days?: No Have you Ever Experienced Previous Episodes of Alcohol Withdrawal?: No Have you ever Experienced Withdrawal Seizures?: No Have you ever Experienced Delirium Tremens(DT)s?: No Have you ever undergone Alcohol Rehabilitation Treatment (i.e, inpt ot outpatient treatment programs)?: No Have you ever Experienced Blackouts?: No Have you ever Combined Alcohol with other Downers within the last 90 days?: No Have you ever Combined Alcohol with any other Substance of Abuse during the last 90 days?: No Positive Blood Alcohol level on Presentation? [PCS.BAL]: No Evidence of Increased Autonomic Activity (i.e. HR>120, tremor, sweating, agitation, nausea)?: No Result: 0
[2024-03-28] MEDS: risperiDONE 0.5 MG TAB PO (19:54)
--- NOTE | 2024-03-28 22:45 | PSYCO_ITS ---
Date of service: 03/28/24 Time of Service: 22:48 Summary Note Name: Eric Ch?: 1990 Date?and?Time: 03/28/2024 9:23:57 PM Location of the patient: [facility] ED?Location of the doctor: [place] Length of consult: 60 minutes This evaluation was conducted via video telepsychiatry with the assistance of onsite staff Reason for consult: Evaluation and Disposition Requested by: Emergency Department History of Present Illness: 34-year-old male that presents to the ED for evaluation of SI. The patient reports that symptoms have worsened over the last couple months. Per the ED documentation the patient reports a plan of stealing a gun or driving car into telephone pole. The patient reports that anxiety and depression have been present for the last year and worse over the past six months. The patient reports he presented at the behest of significant other. The patient reports that SI has worsened over the last 6 months, he is able to think about children and bounce out (8, 11, 18). The patient reports has a plan has he has been thinking about it for 4 months. The plan involves getting a gun and grabbing a gun or driving car into telephone tree. The patient reports no intent. He reports he has an obligation to his children. Depressive symptoms include isolation or feels like a bad father. He reports poor sleep (5-6 hours with multiple awakening with some 2-3 nights of 8 + hours). The patient reports feelings of helpless, anhedonia, decrease in appetite, SI, and poor concentration. Anxiety triggers are relationship and relationship with oldest child and the choice of using THC. He reports that anxiety is prevalent and using coping skills to help support him. The patient denies decreased need for sleep, increase in energy, or grandiosity. He does endorse talking fast, and distractibility, The patient denies HI and AVH. The reports her concerns of him wanting to kill self. She reports that he has been voicing the SI more frequently. She reports that he looked at her and take the car and crash it into a telephone pole. In the past discussed about how he is hurting, but not making the statement. She reports that he has made comments, but the fact that he came is a positive step. She was also provided the contact numbers for Crisis as well. Collateral Contacted: Yes?Collateral name:?Radha Ch?Collateral phone number:?[phone]?Collateral relationship to the patient:? Sleep issues?: Yes?Sleep Quantity:?Poor?Sleep Quality:?Poor Psychiatric History/Treatment History:? Past diagnoses: Depression, Anxiety Hospitalizations: No Current Treatment:Yes?Medication management:?Yes?Medications:?Risperdal and Zoloft?Therapy:?Yes?TherapyDesc:?Has been connected with therapy Suicide Assessment: PSS-3: 1) Over the past 2 weeks have you felt down, depressed or hopeless??Yes? 2) Over the past 2 weeks have you had thoughts of killing yourself??Yes 3) Have you ever in your life attempted to kill yourself??No Within the past 6 months??? PSS-3 Secondary Screen: 1) Positive on PSS-3 questions 2 & 3 ? active SI with a past attempt??Yes ? 2) Have you been thinking about how you might kill yourself??No ? 3) Have you had some intention of acting on your thoughts??No ? 4) Lifetime psychiatric hospitalization??No ? 5) Has drinking or substance abuse ever been a problem for you??No ? 6) Current irritability, agitation, or aggression??No ? PSS-3 Secondary Screen Scoring: Moderate Notes: Mild?(0-2) No current attempt and no plan/intent Moderate?(3-4) No current attempt, Plan OR intent but not both Severe?(5-6) Current Attempt with Plan AND intent [facility]-based Safety Assessment: Risk Factors Stressors: Worsening mood Attempts/Self-injury: No Impulsivity: Drug/Alcohol History:Yes?Description:?Nicotine pouches Trauma History:No Access to firearms:Yes?Description: HI/Violence/Property destruction:No Legal: No Family Psych History:Yes?Description:?Mother: Depression Father: Alcohol Use and possible depression Family History of suicide:No Protective Factors:? Can handle stress well??Yes ? Scientologist??No ? 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 [employer] Education: Bachelors Responsibility to family/children/work: Yes?Description: Future orientation:Yes?Description:?Raise children Health History: Medical History: None reported Medications & Freq: Risperidone 0.5 mg BID Sertraline 100 mg Daily Allergies: NKDA Mental Status Exam: Appearance and Attire:?Normal, Good eye contact Psychomotor agitation:?No abnormality Attitude and behavior:?Cooperative Speech:?No abnormality, Mood:?tired Affect:?Constricted Thought process:?Coherent Thought content:?No suicidal ideation, No homicidal ideation, no active ideation Perception:?No auditory hallucinations, No visual hallucinations Intel:?Average Abstract:?Appropriate Language:?No abnormality Orientation:?Grossly oriented Sense:?Normal Knowledge:?Appropriate for education and socioeconomic status Memory:?Intact Insight:?Mild impairment Judgement:?Appropriate Gait:?No abnormality Impression/Risk Assessment: Current Suicide Risk Elevated??No ? Current Violence Risk Elevated??No ? Issues with ability to care for self??No ? Summary: 34-year-old male patient that presents with worsening anxiety and depression amidst stressors. The patient SI is not currently reported and discussed looking at connecting with outpatient services to help him with mood and symptoms with therapy and medication management. Diagnosis: F33.9 Major depressive disorder, recurrent, unspecified CPT Codes: 69757 - Psychiatric Diagnostic Evaluation with Medical Services Treatment Plan:? General: Level of Care: Discharge to [facility] Psychiatric Clearance: Yes? Observation level ? 1:1 needed?: No Pharmacological: Continue current medications Patient psychotic?No Therapy: Follow up needed while in the hospital?: No Discussed plan with onsite production team manager: No Who No answer Other:
[2024-03-28 23:20] VITALS: BP 135/90; PULSE 74; RESP 16; TEMP 36.7; O2SAT 95
== END 2024-03-28 23:45 | disposition home or self-care (01) ==
PROVIDERS: Emergency Provider Nurse Practitioner Family; PCP Family Medicine
DX: F32.A Depression, unspecified (principal); R45.851 Suicidal ideations; F41.9 Anxiety disorder, unspecified
CPT/HCPCS: 99285

== ENCOUNTER 2024-04-06 17:02 | Outpatient (REF) | payer BC, SELFPAY ==
[2024-04-06 20:42] LABS: ALT 80 U/L (16-63); Albumin 4.6 g/dL (3.4-5.0); Alkaline Phosphatase 136 U/L (46-116); Anion Gap 12.5 mmol/L (3-11); BUN 16 mg/dL (7-18); Bilirubin, Total 0.98 mg/dL (0.2-1.0); CO2 24.5 mmol/L (21.0-32.0); CREATININE 0.8 mg/dL (0.70-1.30); Chloride 98 mmol/L (98-107); Cholesterol 251 mg/dL (<200); Estimated GFR 119.84 (mL/min/1.73m2); Glucose 381 mg/dL (74-106); HDL Cholesterol 33 mg/dL (40-60); Potassium 3.8 mmol/L (3.5-5.1); Sodium 135 mmol/L (136-145); Triglyceride 642 mg/dL (<150)
[2024-04-06 20:46] LABS: Hemoglobin A1C 10.6 % (<5.7)
[2024-04-06 20:53] LABS: LDL CHOLESTEROL 150 mg/dL (<100)
[2024-04-06 21:01] LABS: COMMENT (LAB VIEW ONLY) 34.99 mg/dL
[2024-04-06 21:03] LABS: AST 11 U/L (15-37)
== END 2024-04-06 17:03 | disposition home or self-care (01) ==
LOC: NCHCN 17:02
PROVIDERS: PCP Family Medicine; Visit Provider Nurse Practitioner Family
DX: E11.9 Type 2 diabetes mellitus without complications (principal)
CPT/HCPCS: 80053; 80061; 83721; 82043; 82570; 83036

== ENCOUNTER 2024-08-29 13:42 | Outpatient (REF) | payer BC, SELFPAY ==
[2024-08-29 14:12] LABS: Hemoglobin A1C 7.6 % (<5.7)
[2024-08-29 14:16] LABS: ALT 79 U/L (16-63); AST 38 U/L (15-37); Albumin 4.4 g/dL (3.4-5.0); Alkaline Phosphatase 113 U/L (46-116); Anion Gap 9.6 mmol/L (3-11); BUN 17 mg/dL (7-18); Bilirubin, Total 0.85 mg/dL (0.2-1.0); CO2 25.4 mmol/L (21.0-32.0); CREATININE 0.9 mg/dL (0.70-1.30); Calcium 9.1 mg/dL (8.5-10.1); Calculated LDL 104 mg/dL (<100); Chloride 101 mmol/L (98-107); Cholesterol 191 mg/dL (<200); Estimated GFR 115.65 (mL/min/1.73m2); Glucose 273 mg/dL (74-106); HDL Cholesterol 38 mg/dL (40-60); Sodium 136 mmol/L (136-145); Total Protein 7.4 g/dL (6.4-8.2); Triglyceride 247 mg/dL (<150)
== END 2024-08-29 13:43 | disposition home or self-care (01) ==
LOC: NCHCN 13:42
PROVIDERS: PCP Family Medicine; Visit Provider Family Medicine
DX: E78.5 Hyperlipidemia, unspecified (principal); E11.9 Type 2 diabetes mellitus without complications
CPT/HCPCS: 80053; 80061; 83036

== ENCOUNTER 2025-04-01 17:01 | Outpatient (REF) | payer BC, SELFPAY ==
[2025-04-01 22:22] LABS: COMMENT (LAB VIEW ONLY) 133.85 mg/dL; Microalb ug/mg Crea 5.8 ug/mg Cr
== END 2025-04-01 17:02 | disposition home or self-care (01) ==
LOC: NCHCN 17:01
PROVIDERS: PCP Family Medicine; Visit Provider Family Medicine
DX: E11.9 Type 2 diabetes mellitus without complications (principal)
CPT/HCPCS: 82043; 82570